=== PATIENT | female | born 1990 | race Hispanic/Latino ===

== ENCOUNTER 2024-03-13 19:23 | Emergency (ER) | payer MEDICAID, OTHER, SELFPAY ==
[2024-03-13 19:58] LABS: Bilirubin Small (Negative); Blood, Urine Negative (Negative); Clarity Clear (Clear); Glucose, Urine (Dipstick) Negative (Negative); Ketone, Urine 15 mg/dL (Negative); Leukocyte Negative (Negative); Nitrite Negative (Negative); Protein, Urine (Dipstick) Trace mg/dL (Neg-Trace); pH, Urine 5.5 (5.0-9.0)
[2024-03-13 20:02] LABS: Specific Gravity, Urine 1.028 (1.002-1.036)
[2024-03-13 20:03] LABS: CAUTI Indications for Culture Dysuria,urgency,freq; RBC/HPF 0-3 HPF (0-3); WBC/HPF 0-3 HPF (0-3)
[2024-03-13 20:04] LABS: Pregnancy Test - Urine (BHCG) Negative (Negative); Pregu Control Background? CLEAR/WHITE (CLR/WHITE); Pregu Control Bar Appear? YES (CONTROL BAR); Specific Gravity 1.028 (1.002-1.036); Urine Culture Reflex No No
== END 2024-03-13 20:21 | disposition home or self-care (01) ==
LOC: NAV ERS 19:23
DX: E86.0 Dehydration (principal)
CPT/HCPCS: 81001; 81025; 99284